=== PATIENT | male | born 1945 | race Caucasian/White ===

== ENCOUNTER → 2020-06-13 | Outpatient (CLI) | payer MEDICARE, OTHER ==
[~2020-06-13] MED LIST: ATOR10TA9 PO; CHOL10003 PO; FISH1CAP PO; FLEC50TA25 PO; FURO20TA3 PO; GLUC1CAP48 PO; LISI5TAB7 PO; METO50TA82 PO; MIRA50TA PO; RIVA20TA PO; UBID100C41 PO
[2020-06-13 14:38] LABS: MICROSCOPIC AUTO
[2020-06-13 14:48] LABS: ALANINE AMINOTRANSFERASE 13 U/L (12-78); ALBUMIN 3.5 g/dL (3.4-5.0); ANION GAP 3 mmol/L (5-15); CHLORIDE 106 mmol/L (98-107); CREATININE 0.88 mg/dL (0.7-1.3)
[2020-06-13 14:50] LABS: ALKALINE PHOSPHATASE 99 U/L (45-117); BILIRUBIN,TOTAL 0.4 mg/dL (0.2-1.0); TOTAL PROTEIN 7.2 g/dL (6.4-8.2)
== END | disposition home or self-care (01) ==
LOC: STAR 12:47
PROVIDERS: ATTEND Urology
DX: Z01.812 Encounter for preprocedural laboratory examination (principal); Z20.828 Contact with and (suspected) exposure to other viral communicable diseases; N35.013 Post-traumatic anterior urethral stricture; I44.4 Left anterior fascicular block; I25.2 Old myocardial infarction
CPT/HCPCS: 36415; 80053; 81001; 87077; 87086; 87186; 87635; 93005

== ENCOUNTER 2020-06-17 05:39 | Day surgery (SDC) | payer MEDICARE, OTHER ==
[~2020-06-17] VITALS: Ht 180.3 cm; Wt 96.1 kg
[2020-06-17] MEDS ORDERED: CHLORHEXIDINE 15 ML UDC MM STA (06:15)
[2020-06-17] MEDS ORDERED: LACTATED RINGERS 1,000 ML IV STA (06:15)
[2020-06-17 06:16] VITALS: BP 135/74
[2020-06-17] MEDS ORDERED: CHLORHEXIDINE 15 ML UDC ONE (06:20)
[2020-06-17] MEDS ORDERED: LACTATED RINGERS 1,000 ML IV ONE (07:00)
[2020-06-17] MEDS ORDERED: FENTANYL PF 100 MCG/2ML ONE (07:24)
[2020-06-17] MEDS ORDERED: LIDOCAINE PF 2%, 5ML ONE (07:27)
[2020-06-17] MEDS ORDERED: DEXAMETHASONE 4 MG/ML, 1ML ONE (07:41)
[2020-06-17] MEDS ORDERED: ONDANSETRON 2MG/ML, 2ML ONE (07:41)
[2020-06-17] MEDS ORDERED: PROPOFOL 10 MG/ML, 20ML ONE (07:41)
[2020-06-17] MEDS ORDERED: CEFAZOLIN 1,000 MG ONE (07:41)
[2020-06-17] MEDS ORDERED: PROMETHAZINE 25 MG/ML, 1ML IVPush PRN (08:00)
[2020-06-17] MEDS ORDERED: METHOCARBAMOL 1,000 MG in DEXTROSE 5% 100 ML IV PRN (08:00)
[2020-06-17] MEDS ORDERED: OXYcodone/APAP 5/325MG TABLET PO PRN (08:00)
[2020-06-17] MEDS ORDERED: PROMETHAZINE 25 MG SUPP PR PRN (08:00)
[2020-06-17] MEDS ORDERED: ACETAMINOPHEN 325 MG TABLET PO PRN (08:00)
[2020-06-17] MEDS ORDERED: FENTANYL PF 100 MCG/2ML IV PRN (08:00)
[2020-06-17] MEDS ORDERED: HYDROmorphone 1 MG/ML, 1ML INJ IVPush PRN (08:00)
[2020-06-17] MEDS ORDERED: OXYcodone 5 MG/5 ML ORAL.SOL UDC PO PRN (08:00)
[2020-06-17] MEDS ORDERED: METOPROLOL 1 MG/ML, 5ML IV PRN (08:00)
[2020-06-17] MEDS ORDERED: hydrALAzine 20 MG/ML, 1ML IV PRN (08:00)
[2020-06-17] MEDS ORDERED: LABETALOL 5MG/ML, 20ML IV PRN (08:00)
[2020-06-17] MEDS ORDERED: ONDANSETRON 2MG/ML, 2ML IVPush PRN (08:00)
== END 2020-06-17 10:40 | disposition home or self-care (01) ==
LOC: OUT 05:39
PROVIDERS: ATTEND Urology
DX: N35.013 Post-traumatic anterior urethral stricture (principal); N40.1 Benign prostatic hyperplasia with lower urinary tract symptoms; N13.8 Other obstructive and reflux uropathy; C61 Malignant neoplasm of prostate; I48.91 Unspecified atrial fibrillation; I10 Essential (primary) hypertension; F17.200 Nicotine dependence, unspecified, uncomplicated; Z79.01 Long term (current) use of anticoagulants; Z79.891 Long term (current) use of opiate analgesic; Z79.899 Other long term (current) drug therapy; Z90.79 Acquired absence of other genital organ(s); Z80.9 Family history of malignant neoplasm, unspecified; Z82.49 Family history of ischemic heart disease and other diseases of the circulatory system
CPT/HCPCS: 52276; C1769; J0690; J1100; J2405; J2704; J3010; J7120